=== PATIENT | male | born 1985 | race African-American/Black ===

== ENCOUNTER 2020-04-12 07:06 | Emergency (ER) | payer OTHER ==
[~2020-04-12] VITALS: Ht 160 cm; Wt 63.5 kg
[2020-04-12 07:08] VITALS: BP 102/81
--- NOTE | 2020-04-12 16:28 | EKG ---
[place] [address] ELECTROCARDIOGRAM REPORT Name: NAYELI BRAUN Room: [facility]#: [id number] Admission: 04/12/20 Attend Phys: Discharge: 04/12/20 Date of : 81 Date of Service: 04/12/2015 Report #: [id number] THIS REPORT FOR: //name// [facility] ED Test Date: 2020-04-12 Test Time: 07:15:23 Pat Name: NAYELI BRAUN Department: Room: Gender: Floor Space Allocator: [facility] : 1985 Requested By: Maury Nuñez Order Number: [id number] MD: Tor Cantrell Measurements Intervals [place] Rate: 70 P: 80 MN: 149 QRS: 87 QRSD: 88 T: 72 QT: 432 QTc: 467 Interpretive Statements Sinus rhythm with sinus arrhythmia ST elev, probable normal early repol pattern No previous ECG available for comparison Electronically Signed On 04-12-2020 16:28:02 CDT by Tor Cantrell [email or web address] <ELECTRONICALLY SIGNED> By: Tor Cantrell MD, [facility] 04/12/20 1628 4 4 Tor Cantrell MD, [facility] /EPI
== END 2020-04-12 07:41 | disposition left against medical advice (07) ==
LOC: M.ERS 07:06 → EDSEX 07:06 → M.ERS 07:41
DX: F41.0 Panic disorder [episodic paroxysmal anxiety] (principal)